=== PATIENT | male | born 1955 | race Caucasian/White ===

== ENCOUNTER 2017-02-09 08:59 | Emergency (ER) | payer OTHER ==
[~2017-02-09] VITALS: Ht 182.9 cm; Wt 90.3 kg
[2017-02-09 10:17] LABS: EOSINOPHIL (%) 0.2 % (0-5); HEMATOCRIT 41.5 % (38.0-50.0); IMMATURE GRANULOCYTE (%) 0.2 % (0.0-0.7); INSTRUMENT ABS NEUTROPHIL CT 6.6 K/uL; LYMPHOCYTE COUNT 0.9 K/uL (1.0-2.8); MCH 28.8 PG (29.0-34.0); MCV 87.2 FL (86-99); MEAN PLAT.VOLUME 10.3 uM^3 (9.0-12.4); MONOCYTE (%) 9.4 % (3-12); MONOCYTE COUNT 0.8 K/uL (0-0.8); NEUTROPHIL (%) 79.3 % (45-76); NEUTROPHIL COUNT 6.6 K/uL (1.8-6.4); PLATELET COUNT 130 K/uL (156-360); RBC DIS.WIDTH-CV 13.3 % (11.8-14.6); RBC DIS.WIDTH-SD 42.6 % (39-53); RED BLOOD COUNT 4.76 M/uL (4.00-5.50); WHITE BLOOD COUNT 8.3 K/uL (4.1-10.2)
[2017-02-09 10:28] LABS: CHLORIDE 107 mEq/L (99-109); POTASSIUM 3.8 mEq/L (3.7-5.4); SODIUM 139 mEq/L (136-147)
[2017-02-09 10:30] LABS: GLUCOSE 126 mg/dL (70-99)
[2017-02-09 10:31] LABS: ANION GAP 9 MEQ/L (2-14)
[2017-02-09 10:32] LABS: TOTAL BILIRUBIN 1.4 mg/dL (0.0-1.0)
[2017-02-09 10:33] LABS: ALKALINE PHOSPHATASE 63 IU/L (3-129)
[2017-02-09 10:34] LABS: GFR ESTIMATE (CALCULATED) 44 mL/min/
[2017-02-09 10:35] LABS: UREA NITROGEN (BUN) 22 mg/dL (9-23)
[2017-02-09 10:46] LABS: ADD MIUA? NO; BILIRUBIN NEGATIVE; BLOOD NEGATIVE; COLOR YELLOW ((YELLOW)); GLUCOSE (STRIP) NEGATIVE; KETONES 80; LEUKOCYTES NEGATIVE; NITRITE NEGATIVE; PROTEIN (STRIP) 30; SPECIFIC GRAVITY 1.026 (1.000-1.030); UCUL ADDED? NO; UROBILINOGEN 0.2 MG/DL (0.2-1.0)
[2017-02-09] MEDS ORDERED: NAPROXEN500 MG PO (10:48)
[2017-02-09] MEDS ORDERED: FLOMAX0.4 MG PO (10:48)
[2017-02-09 11:15] VITALS: BP 105/70
== END 2017-02-09 11:18 | disposition home or self-care (01) ==
LOC: EME 08:59
PROVIDERS: Physician Assistant
DX: N13.2 Hydronephrosis with renal and ureteral calculous obstruction (principal)
CPT/HCPCS: 74176; 80053; 81003; 85025; 99281; 99285; J1885

== ENCOUNTER 2017-11-19 15:39 | Emergency (ER) | payer OTHER ==
[~2017-11-19] VITALS: Ht 180.3 cm; Wt 90.5 kg
[~2017-11-19 15:39] MED LIST: FLOMAX0.4 MG PO; NAPROXEN500 MG PO
[2017-11-19 17:11] LABS: HEMATOCRIT 41.7 % (38.0-50.0); HEMOGLOBIN 14.1 G/DL (12.5-16.6); MCH 30.3 PG (29.0-34.0); MCHC 33.8 G/DL (30.0-36.0); MCV 89.5 FL (86-99); PLATELET COUNT 152 K/uL (156-360); RBC DIS.WIDTH-CV 13.2 % (11.8-14.6); RBC DIS.WIDTH-SD 43.2 % (39-53); RED BLOOD COUNT 4.66 M/uL (4.00-5.50); WHITE BLOOD COUNT 5.1 K/uL (4.1-10.2)
[2017-11-19 17:20] LABS: CHLORIDE 106 mEq/L (99-109); POTASSIUM 4.6 mEq/L (3.7-5.4); SODIUM 141 mEq/L (136-147)
[2017-11-19 17:22] LABS: GLUCOSE 77 mg/dL (70-99)
[2017-11-19 17:26] LABS: CREATININE 0.9 mg/dL (0.6-1.3); GFR ESTIMATE (CALCULATED) > 59 mL/min/ (58.99-99999)
[2017-11-19 17:27] LABS: UREA NITROGEN (BUN) 17 mg/dL (9-23)
[2017-11-19] MEDS ORDERED: KEFLEX500 MG PO (18:34)
[2017-11-19 19:18] VITALS: BP 147/83
== END 2017-11-19 19:18 | disposition home or self-care (01) ==
LOC: EME 15:39
PROVIDERS: Physician Assistant
DX: M70.41 Prepatellar bursitis, right knee (principal); L03.115 Cellulitis of right lower limb; Z87.442 Personal history of urinary calculi
CPT/HCPCS: 73564; 80048; 85027; 93971; 99281; 99284